=== PATIENT | female | born 1985 | race American Indian/Alaskan Native ===

== ENCOUNTER 2017-02-18 23:19 | Emergency (ER) | payer MEDICAID ==
[2017-02-18 23:56] VITALS: BP 128/86
== END 2017-02-18 23:55 | disposition left against medical advice (07) ==
LOC: ED 23:19
DX: R22.1 Localized swelling, mass and lump, neck (principal); Z53.21 Procedure and treatment not carried out due to patient leaving prior to being seen by health care provider

== ENCOUNTER 2018-10-24 06:10 | Inpatient (IN) | payer MEDICAID ==
[2018-10-24] MEDS ORDERED: BICITRA PO ONE (06:23)
[2018-10-24] MEDS ORDERED: REGLAN IV ONE (06:23)
[2018-10-24] MEDS ORDERED: PEPCID IV ONE ×2 (06:23→12:13)
--- NOTE | 2018-10-24 06:34 | History and Physical Report ---
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 of genital herpes: no Partner hx. of genital herpes: no Rash, Viral, or Febrile illness since last LMP? no Varicella/Chicken Pox Status: Previous Disease Genetic History Congenital Heart Defect: Mom: no Dad: no Shira Disease: Mom: no Dad: no Thalassemia Mom: no Dad: no Neural Tube Defect Mom: no Dad: no Down's Syndrome Mom: no Dad: no Guido-Sachs Mom: no Dad: no Sickle Cell Disease/Trait Mom: no Dad: no Hemophilia Mom: no Dad: no Muscular Dystrophy Mom: no Dad: no Cystic Fibrosis Mom: no Dad: no Bethel Chorea Mom: no Dad: no Mental Retardation Mom: no Dad: no Fragile X Mom: no Dad: no Other Genetic/Chromosomal Disorder Mom: no Dad: no Child w/other defect Mom: no Dad: no Enviromental Exposures Xray Exposure: no Medication, drug, or alcohol use since LMP: no Chemical/Other Exposure: no Exposure to Cat Liter: no Hx of Parvovirus (Fifth Disease): no Occupational Exposure to Children: none Active Medications: None Current Allergies (reviewed today): * TOMASA (Critical) Past History - Obstetrical History Expected Date of Delivery: 10/31/18 Actual Gestation: 39 Week(s) 0 Day(s) Medications and Allergies Allergies Allergy/AdvReac Type Severity Reaction Status Date / Time hydrocodone Allergy Unknown Verified 02/18/17 23:57 Active Meds: Active Medications Citric Acid/Sodium Citrate (Bicitra) 30 ml PO ONCE ONE Stop: 10/24/18 06:24 Famotidine (Pepcid) 20 mg IV ONCE ONE Stop: 10/24/18 06:24 Cefazolin Sodium (Ancef/Sterile Water 2 Gm/20 Ml) 2 gm in 20 mls @ 80 mls/hr IV PREOP NR; Protocol Lactated Ringer's (Lactated Ringers) 1,000 mls @ 2,250 mls/hr IV PREOP MARIA A Stop: 10/25/18 07:27 Oxytocin/Sodium Chloride (Pitocin/Ns 20 Unit/1000ml Drip) 20 units in 1,000 mls @ 0 mls/hr IV TITR MARIA A Metoclopramide HCl (Reglan) 10 mg IV ONCE ONE Stop: 10/24/18 06:24 Results All other labs normal. Assessment and Plan - Patient Problems (1) 39 weeks gestation of Status: Acute (2) Maternal care for scar from previous delivery Status: Acute Plan to address problem: The risks and alternatives for this surgery were reviewed with the patient. She was informed of possible bleeding, infection, injury to bowel, bladder, ureters or other adjacent organs. The patient was instructed/informed the following: The normal length of hospital stay for this procedure. Nothing to eat or drink after midnight the evening prior to surgery. Pre-op instruction sheets given. Wound care instructions given. Infection precautions reviewed, patient to call for any signs or symptoms of infection. The usual discomforts associated with this procedure were detailed. Proper use of pain medicines was reviewed. She desires to proceed with c/s. Patient was given ample opportunity to have all her questions answered before signing informed consent. (3) Advanced maternal age (AMA) in Status: Acute (4) Carrier of group B Streptococcus Status: Acute
[2018-10-24] MEDS ORDERED: LACTATED RINGERS 1,000 ML IV SCH (07:00)
[2018-10-24] MEDS ORDERED: ANCEF/STERILE WATER 2 GM/20 ML 2 GM/20 ML SYRINGE IV NR (07:00)
[2018-10-24 09:47] LABS: Hematocrit 33.4 % (30.3-42.9); Hemoglobin 11.1 gm/dl (10.1-14.3); Mean Corpuscular HGB Conc 33 % (30-34); Mean Corpuscular Volume 87 fl (79-97); Platelet Count 259 K/mm3 (140-440); Red Blood Count 3.85 M/mm3 (3.65-5.03); Red Cell Distribution Width 16.7 % (13.2-15.2)
--- NOTE | 2018-10-24 10:45 | Anesthesia Day of Surgery ---
Anesthesia Day of Surgery - Day of Surgery Patient Examined: Yes Patient H&P Reviewed: Yes Patient is NPO: Yes Beta Blockers: No Cardiac Clearance: No Pulmonary Clearance: No Giacomo's Test: N/A
--- NOTE | 2018-10-24 10:45 | Anesthesia Consultation ---
Anesthesia Consult and Med Hx - Airway Anesthetic Teeth Evaluation: Good Mental/Hyoid Distance: Adequate Mallampati Class: Class II Intubation Access Assessment: Probably Good - Pulmonary Exam CTA: Yes - Cardiac Exam Cardiac Exam: RRR - Pre-Operative Health Status ASA Pre-Surgery Classification: ASA2 Proposed Anesthetic Plan: Spinal - Pulmonary Hx Smoking: No Hx Asthma: No Hx Respiratory Symptoms: No SOB: No COPD: No Home Oxygen Therapy: No Hx Pneumonia: No Hx Sleep Apnea: No - Cardiovascular System Hx Hypertension: No Hx Coronary Artery Disease: No Hx Heart Attack/AMI: No Hx Angina: No Hx Percutaneous Transluminal Coronary Angioplasty (PTCA): No Hx Cardia Arrhythmia: No Hx Pacemaker: No Hx Internal Defibrillator: No Hx Valvular Heart Disease: No Hx Heart Murmur: No Hx Peripheral Vascular Disease: No - Central Nervous System Hx Neuromuscular Disorder: No Hx Seizures: No CVA: No Hx Back Pain: No Hx Psychiatric Problems: No - Gastrointestinal Hx Ulcer: No Hx Gastroesophageal Reflux Disease: No - Endocrine Hx Renal Disease: No Hx End Stage Renal Disease: No Hx Cirrhosis: No Hx Liver Disease: No Hx Insulin Dependent Diabetes: No Hx Non-Insulin Dependent Diabetes: No Hx Thyroid Disease: No Hx Hypothyroidism: No Hx Hyperthyroidism: No - Hematic Hx Anemia: No Hx Sickle Cell Disease: No - Other Systems Hx Alcohol Use: No Hx Substance Use: No Hx Cancer: No Hx Obesity: No
[2018-10-24] MEDS ORDERED: ZOFRAN IV PRN (10:46)
[2018-10-24] MEDS ORDERED: PHENERGAN PR PRN (10:46)
[2018-10-24] MEDS ORDERED: NUBAIN IV PRN (10:46)
[2018-10-24] MEDS ORDERED: NARCAN 0.4 MG/1 ML IV PRN (10:46)
[2018-10-24] MEDS ORDERED: BENADRYL IV PRN (10:46)
[2018-10-24] MEDS ORDERED: PHENERGAN PO PRN (10:46)
[2018-10-24] MEDS ORDERED: DILAUDID IV PRN ×2 (10:46)
[2018-10-24] MEDS ORDERED: SODIUM CHLORIDE FLUSH SYRINGE 10 ML IV NR (11:00)
[2018-10-24] MEDS ORDERED: ASTRAMORPH PF 10MG/10ML ONE (11:06)
[2018-10-24] MEDS ORDERED: TORADOL ONE (11:06)
[2018-10-24] MEDS ORDERED: SUBLIMAZE ONE (11:06)
[2018-10-24] MEDS ORDERED: SENSORCAINE/DEXTR 0.75-8.25% INFILTRATI ONE (11:07)
[2018-10-24] MEDS ORDERED: BICITRA ONE (12:12)
[2018-10-24] MEDS ORDERED: REGLAN ONE (12:13)
[2018-10-24] MEDS ORDERED: ANCEF/STERILE WATER 2 GM/20 ML 2 GM/20 ML SYRINGE IV ONE (12:13)
[2018-10-24] MEDS ORDERED: ANCEF/STERILE WATER 2 GM/20 ML IV ONE (12:52)
[2018-10-24] MEDS ORDERED: WATER FOR IRRIG STERILE IR ONE (12:59)
[2018-10-24] MEDS ORDERED: NACL 0.9% IR ONE (12:59)
[2018-10-24] MEDS: PITOCin/NS 20 UNIT/1000ML DRIP 20 UNITS/1,000 ML BAG IV SCH ×2 (13:07→14:48)
--- NOTE | 2018-10-24 14:06 | Operative Report ---
Operative Report Operative Report: Date: 10/24/2018 Preoperative diagnosis: 1. Intrauterine at 39 weeks 2. Advanced maternal age 3. Previous desires repeat 4. Group B strep carrier Postoperative diagnosis: 1. Intrauterine at 39 weeks 2. Advanced maternal age 3. Previous desires repeat 4. Group B strep carrier Procedure: Low uterine transverse incision for delivery Surgeon: Savanna Ramirez MD Senior Care Manager: [] Anesthesia: Epidural Anesthesiologist: Dr. Meseret Henderson Estimated blood loss: 700 mL Urine out: 50 mL Findings: Live born female infant. Weight 7 lbs. 14 oz. Apgars 8 at 1 minute and 9 at 5 minutes. Uterus enlarged, tubes unable to evaluate, ovaries unable to evaluate. Procedure: After risk, benefits, complications, consequences and alternatives for this procedure were discussed with patient and consents were reviewed and signed, she was taken to the OR where epidural anesthesia was placed. She was then placed in the left lateral tilt position, and prepped and draped in the usual sterile fashion. Timeout was performed, and an appropriate level of anesthesia was noted, a Pfannenstiel incision was made and extended to the fascia which was incised and extended in the lateral directions. The overlying fascia was sharply dissected away from the underlying rectus muscles in the superior and inferior directions. The midline was entered bluntly. The vesicouterine fold was incised and with blunt dissection the bladder flap was created. A transverse incision was made in the lower uterine segment and extended in superiolateral direction with finger fractionation. Clear fluid was noted. The infant was delivered from cephalic ROT position. Mouth and nose were bulb suctioned. Spontaneous cry and excellent tone were noted. Cord was doubly clamped and cut. The infant was given to /resuscitation team present. The placenta was manually extracted. Due to uterine size decision was made to reapproximate the incision with the uterus inside. The uterus was cleared of any further products of conception or placental tissue. The incision was reapproximated using 0 Vicryl in a running interlocking stitch. Once hemostasis was noted, the uterus was allowed back into the pelvic cavity. The pelvis was irrigated with warm normal saline. Again hemostasis was noted . Surgicel applied for further hemostasis. Interceed was then placed to prevent adhesions. Then attention was turned to the rectus muscles. The rectus muscles reapproximated using 0 Vicryl in a simple interrupted stitch x 3. Once hemostasis was noted, the fascia was reapproximated using 0 Vicryl running stitch fashion. Once hemostasis was noted skin incision was reapproximated using 4-0 Vicryl on a García needle in a subcuticular manner. Counts were correct 3. Patient tolerated procedure well state recovery room in stable condition.
[2018-10-24] MEDS ORDERED: SODIUM CHLORIDE FLUSH SYRINGE 10 ML IV SCH (16:54)
[2018-10-24] MEDS ORDERED: PITOCin/NS 20 UNIT/1000ML DRIP 20 UNITS/1,000 ML BAG IV SCH (16:54)
[2018-10-24] MEDS ORDERED: TUCKS PAD TP PRN (16:54)
[2018-10-24] MEDS ORDERED: METHERGINE PO PRN (16:54)
[2018-10-24] MEDS ORDERED: MORPHINE IV PRN (16:54)
[2018-10-24] MEDS ORDERED: TYLENOL PR PRN (16:54)
[2018-10-24] MEDS ORDERED: LANSINOH TP PRN (16:54)
[2018-10-24] MEDS ORDERED: CYTOTEC PR PRN (16:54)
[2018-10-24] MEDS ORDERED: MILK OF MAGNESIA PO PRN (16:54)
[2018-10-24] MEDS ORDERED: HEMABATE IM PRN (16:54)
[2018-10-24] MEDS ORDERED: TYLENOL PO PRN (16:54)
[2018-10-24] MEDS ORDERED: D5LR 1,000 ML IV SCH (16:54)
[2018-10-24] MEDS ORDERED: TORADOL IV PRN (18:00)
--- NOTE | 2018-10-24 19:07 | Post Anesthesia Evaluation ---
- Post Anesthesia Evaluation Patient Participated: Yes Airway Patent: Yes Stable Respiratory Function: Yes Nausea/Vomiting: No Temp > 96.8F: Yes Pain Manageable: Yes Adequeate Hydration: Yes Anesthesia Complications: No Block Receding Appropriately: Yes Patient on Ventilator: No
[2018-10-24] MEDS: ANCEF/NS 1 GM/50 ML 1 GM/50 ML BAG IV SCH (21:39)
[2018-10-25 01:46] LABS: Hematocrit 30.9 % (30.3-42.9); Hemoglobin 10.3 gm/dl (10.1-14.3)
[2018-10-25] MEDS: ANCEF/NS 1 GM/50 ML 1 GM/50 ML BAG IV SCH (04:15)
--- NOTE | 2018-10-25 08:19 | Progress Note ---
Assessment and Plan - Patient Problems (1) delivery delivered Onset Date: ~10/24/18 Current Visit: Yes Status: Acute Plan to address problem: Pt resting No c/o voiced VSS FF @ umb Lochia small Dressing D&I to be removed today H&H 06/24 stable No evidence anemia. Doing well s/p repeat c/s P: continue pathway Advance diet and activity as tolerated. Subjective - Subjective Date of service: 10/25/18 (A&O No c/o voiced) Principal diagnosis: s/p Repeat c/s Patient reports: voiding normally, pain well controlled, ambulating normally [place]: doing well Objective - Vital Signs Latest vital signs: Vital Signs Temp Pulse Resp BP BP Pulse Ox 10/25/18 04:05 98.2 F 70 20 90/51 10/25/18 01:30 16 10/25/18 01:00 18 10/25/18 00:00 98.0 F 64 20 96/59 97 10/24/18 20:15 98.0 F 64 20 100/57 100 10/24/18 17:29 97.2 F L 69 20 97/53 94 10/24/18 15:35 97.7 F 61 18 98/47 100 10/24/18 14:47 64 16 108/53 98 10/24/18 14:42 72 16 100/46 98 10/24/18 14:37 66 18 106/52 99 10/24/18 14:32 60 16 97/48 98 10/24/18 14:27 60 18 109/50 98 10/24/18 14:22 65 16 96/49 98 10/24/18 14:17 63 16 93/40 97 10/24/18 14:12 60 18 99/52 98 10/24/18 14:07 63 18 101/52 98 10/24/18 14:02 63 18 107/50 98 10/24/18 13:57 63 16 106/49 98 10/24/18 13:52 61 16 106/48 97 10/24/18 13:47 97.9 F 62 16 103/48 97 10/24/18 12:21 64 105/56 Intake and Output 10/24/18 10/25/18 10/25/18 22:59 06:59 14:59 Intake Total 150 480 Output Total 100 900 Balance 50 -420 Intake: IV 50 ANCEF/NS 1 GM/50 ML 1 gm 50 In 50 ml @ 100 mls/hr IV Q8H [facility] Rx#:[id number] Oral 100 480 Output: Urine 100 900 Indwelling Catheter 100 500 Void 400 Other: Total, Intake Amount 100 240 Total, Output Amount 100 400 # Voids Indwelling Catheter 1 Void 1 - Exam Breasts: Present: normal Cardiovascular: Present: Regular rate Lungs: Present: Normal air movement Abdomen: Present: normal appearance, soft, normal bowel sounds Uterus: Present: normal, fundal height at umbilicus Extremities: Present: normal Incision: Present: normal, dry, intact, dressed (to be removed) - Labs Labs: Abnormal lab results 10/24/18 Range/Units 09:13 RDW 16.7 H (13.2-15.2) %
[2018-10-25] MEDS ORDERED: BOOSTRIX IM ONE (12:00)
[2018-10-25] MEDS ORDERED: AFLURIA QUAD 2018-2019 SYRINGE IM ONE (12:00)
[2018-10-25] MEDS: IBUPROFEN PO PRN ×2 (12:20→18:00)
[2018-10-25] MEDS: MYLICON PO PRN ×2 (12:20→18:00)
[2018-10-25] MEDS: NORCO 5/325 PO PRN ×2 (12:20→18:00)
[2018-10-26] MEDS: NORCO 5/325 PO PRN ×2 (01:43→07:51)
[2018-10-26] MEDS: IBUPROFEN PO PRN ×2 (01:44→07:51)
[2018-10-26] MEDS: MYLICON PO PRN (07:58)
--- NOTE | 2018-10-26 08:56 | Discharge Summary ---
Providers - Providers Date of Admission: 10/24/18 06:10 Date of discharge: 10/26/18 (pt desires d/c) Attending physician: OVIDIO STEIN 10/24/18 16:54 Consult to Electromatic Typist [CONS] Routine Reason For Exam: Primary care physician: OVIDIO STEIN Hospitalization Reason for admission: section Delivery: Procedure: repeat low transverse Episiotomy: none Laceration: none Incision: normal, dry, intact Other procedures: none complications: none Discharge diagnosis: IUP at term delivered [place] baby: female Hospital course: uncomplicated repeat section Pt w/o complaint Desires d/c VSS FF below umb Lochia scant Incision D&I H&H stable No s/sx of anemia Doing well s/p repeat c/s P: d/c today with instructions RTO 1 week for postop care Condition at discharge: Good Disposition: - TO HOME OR SELFCARE - Discharge Diagnoses (1) delivery delivered Status: Acute Comment: RTO 1 week postop visit Plan - Discharge Medications Prescriptions: HYDROcodone/APAP 5-325 [Farner 5-325 mg TAB] 1 - 2 each PO Q6H PRN #30 tablet PRN Reason: Pain Ibuprofen [Motrin 800 MG tab] 800 mg PO TID PRN #30 tablet PRN Reason: Pain - Provider Discharge Summary Activity: routine, no sex for 6 weeks, no heavy lifting 4 weeks, no strenuous exercise Diet: routine Instructions: routine Additional instructions: [] Smoking cessation referral if applicable(refer to patient education folder for contact #) [] Refer to [facility]'s [facility] Booklet Call your doctor immediately for: * Fever > 100.5 * Heavy vaginal bleeding ( >1 pad per hour) * Severe persistent headache * Shortness of breath * Reddened, hot, painful area to leg or breast * Drainage or odor from incision. * Keep incision clean and dry at all times and follow doctor's instructions regarding bathing/showering - Follow up plan Follow up: OVIDIO STEIN MD [Primary Care Provider] - 11/03/18 9:30 am (Congratulations! Please keep your postoperative appointment as scheduled 11-03-18 @ 9:30AM in the [place] office. Take medications as prescribed. Call [phone] with any concerns. )
[2018-10-26 13:39] VITALS: BP 114/60
== END 2018-10-26 14:15 | disposition home or self-care (01) | DRG 766 ==
LOC: APU 06:10 → OB 15:48
PROVIDERS: ADMIT Obstetrics & Gynecology; ATTEND Obstetrics & Gynecology
PROC: 10D00Z1 Extraction of Products of Conception, Low, Open Approach (ICD-10-PCS; principal; 2018-10-24)
PROC: 3E0234Z Introduction of Serum, Toxoid and Vaccine into Muscle, Percutaneous Approach (ICD-10-PCS; 2018-10-25)
DX: O34.211 Maternal care for low transverse scar from previous cesarean delivery (principal); Z37.0 Single live birth; O99.824 Streptococcus B carrier state complicating childbirth; Z83.3 Family history of diabetes mellitus; Z88.5 Allergy status to narcotic agent; Z23 Encounter for immunization; Z3A.39 39 weeks gestation of pregnancy
CPT/HCPCS: 36415; 59025; 85014; 85018; 85027; 86592; 86850; 86900; 86901; 90686; 96360; G0378; C1765; J0690; J1885; J2274; J2590; J2765; J3010; J7120; J7121